=== PATIENT | female | born 1985 | race Two or more races ===

== ENCOUNTER 2016-06-06 12:25 | Observation (INO) | payer SELFPAY ==
[2016-06-06] MEDS ORDERED: PREN-153 OR (13:49)
== END 2016-06-06 16:20 | disposition home or self-care (01) | DRG 781 ==
LOC: LDRP 12:25
PROVIDERS: ADMIT Specialist; ATTEND Specialist
DX: O26.893 Other specified pregnancy related conditions, third trimester (principal); Z3A.37 37 weeks gestation of pregnancy
CPT/HCPCS: 59025; 76805; 76818; 81002; G0378

== ENCOUNTER 2016-06-07 18:57 | Observation (INO) | payer SELFPAY ==
[~2016-06-07 18:57] MED LIST: PREN-153 OR
== END 2016-06-07 20:22 | disposition home or self-care (01) | DRG 781 ==
LOC: LDRP 18:57
PROVIDERS: ADMIT Specialist; ATTEND Specialist
DX: O26.893 Other specified pregnancy related conditions, third trimester (principal); N89.8 Other specified noninflammatory disorders of vagina; Z3A.34 34 weeks gestation of pregnancy
CPT/HCPCS: 59025; 76818; 81002; G0378

== ENCOUNTER 2016-06-09 20:22 | Observation (INO) | payer OTHER | END 2016-06-09 21:38 | disposition home or self-care (01) | DRG 782 | LOC: LDRP 20:22 | PROVIDERS: ADMIT Obstetrics & Gynecology; ATTEND Obstetrics & Gynecology | DX: O41.03X0 Oligohydramnios, third trimester, not applicable or unspecified (principal); Z3A.37 37 weeks gestation of pregnancy | CPT/HCPCS: 59025; 76818; 81002; G0378 ==

== ENCOUNTER 2016-06-11 20:20 | Observation (INO) | payer SELFPAY | END 2016-06-11 21:42 | disposition home or self-care (01) | DRG 781 | LOC: LDRP 20:20 | PROVIDERS: ADMIT Specialist; ATTEND Specialist | DX: O26.893 Other specified pregnancy related conditions, third trimester (principal); Z3A.37 37 weeks gestation of pregnancy | CPT/HCPCS: 59025; 76818; 81002; G0378 ==

== ENCOUNTER 2016-06-27 12:55 | Observation (INO) | payer MEDICAID | END 2016-06-27 14:03 | disposition home or self-care (01) | DRG 566 | LOC: LDRP 12:55 | PROVIDERS: ADMIT Specialist; ATTEND Specialist | DX: O26.893 Other specified pregnancy related conditions, third trimester (principal); R10.9 Unspecified abdominal pain; Z3A.37 37 weeks gestation of pregnancy | CPT/HCPCS: 59025; 76818; 81002; G0378 ==

== ENCOUNTER 2016-06-27 23:03 | Inpatient (IN) | payer MEDICAID ==
[~2016-06-27] VITALS: Ht 152.4 cm; Wt 68.0 kg
[2016-06-27] MEDS ORDERED: LACT. RINGERS/OXYTOCIN 20UNITS 1,000 ML IV SCH (23:10)
[2016-06-27] MEDS ORDERED: WITCH HAZEL-GLYCERIN PAD TOP PRN (23:15)
[2016-06-27] MEDS ORDERED: METHYLERGONOVINE MALEATE 0.2 MG/ML AMP IM PRN (23:15)
[2016-06-27] MEDS ORDERED: NALBUPHINE HCL 10 MG/1ml INJECTION IV PRN (23:15)
[2016-06-27] MEDS ORDERED: CARBOPROST TROMETHAMINE 250 MCG/1ML VIAL IM PRN (23:15)
[2016-06-27] MEDS ORDERED: PHISODERM TOP SOLN 240ML BTL TOP PRN (23:15)
[2016-06-27] MEDS ORDERED: LIDOCAINE 2%HCL (LOCAL ANESTH.) INJ 20ML MDV IJ ONE (23:15)
[2016-06-27] MEDS ORDERED: DERMOPLAST 60ML BOTTLE TOP PRN (23:15)
[2016-06-27 23:52] LABS: Urine RBC None Seen /hpf (0 - 4)
[2016-06-27] MEDS: LACTATED RINGER'S 1,000 ML IV SCH (23:55)
[2016-06-28 00:01] LABS: Basophils # (auto) 0.1 uL; Basophils % (auto) 0.6 % (0.0-2.0); Eosinophils # (auto) 0.2 uL; Hematocrit 33.8 % (36.0-46.0); Hemoglobin 11.3 g/dL (12.2-16.2); Mean Corpuscular Hemoglobin 31.2 pg (28.0-32.0); Mean Corpuscular Hgb Conc. 33.3 g/dL (32.0-36.0); Mean Corpuscular Volume 93.5 fL (80.0-100.0); Mean Platelet Volume 10.3 fL (7.4-10.4); Monocytes # (auto) 0.7 uL; Monocytes % (auto) 7.2 % (0.0-12.0); Neutrophils # (auto) 6.3 uL; Neutrophils % (auto) 69.2 % (37.0-80.0); Platelet Count (auto) 162 10^3/uL (140-450); Red Cell Distribution Width 12.5 % (11.6-16.0); White Blood Cell 9.3 10^3/uL (4.4-10.8)
[2016-06-28 00:04] LABS: Urine Bilirubin Negative (Negative); Urine Blood Negative /uL (Negative); Urine Color Yellow (Yellow); Urine Glucose Normal (Normal); Urine Ketone Negative (Negative); Urine Nitrite Negative (Negative); Urine Urobilinogen Normal (Negative); Urine pH 6.5 (5.0-8.0)
[2016-06-28 00:17] LABS: Partial Thromboplastin Time 25.7 sec (22.64-33.71); Prothrombin Time 9.6 sec (9.37-12.3)
[2016-06-28 00:19] LABS: Albumin 2.5 g/dL (3.4-5.0); BUN/Creatinine Ratio 27.5; Calcium 9.2 mg/dL (8.5-10.1)
[2016-06-28 00:22] LABS: Bilirubin, Total 0.2 mg/dL (0.2-1.0); Total Protein 6.8 g/dL (6.4-8.2)
[2016-06-28 00:23] LABS: INR 0.88 (0.9-1.15)
[2016-06-28] MEDS ORDERED: AZITHROMYCIN 250 MG TAB PO ONE (01:00)
[2016-06-28] MEDS ORDERED: SODIUM CHLORIDE 0.9% 500 ML IV PRN ×2 (07:28→09:19)
[2016-06-28] MEDS ORDERED: fentaNYL W ROPIVACAINE 150 ML EPI SCH ×2 (07:30→10:00)
[2016-06-28] MEDS ORDERED: ePHEDrine SULFATE 50 MG/ML AMP IV ONE ×2 (07:30→09:30)
[2016-06-28] MEDS ORDERED: fentaNYL CITRATE 100 MCG/2 ML VL IV ONE ×2 (07:30→09:30)
[2016-06-28] MEDS ORDERED: LIDOCAINE HCL 2 %PF INJ 10ML AMP IJ ONE ×2 (07:30→09:30)
[2016-06-28] MEDS: LACTATED RINGER'S 1,000 ML IV SCH ×2 (08:10→11:05)
[2016-06-28] MEDS ORDERED: LIDOCAINE 2%HCL (LOCAL ANESTH.) INJ 20ML MDV IJ ONE (09:30)
[2016-06-28] MEDS ORDERED: NALOXONE HCL 0.4 MG/ML VIAL IV ONE (09:30)
[2016-06-28] MEDS ORDERED: ceFAZolin 1GM 2 GM in D5W 5% 100 ML IV ONE (10:30)
[2016-06-28 11:50] VITALS: BP 108/59
[2016-06-28] MEDS ORDERED: LACT. RINGERS/OXYTOCIN 20UNITS 500 ML IV ONE (12:18)
[2016-06-28] MEDS ORDERED: ACETAMINOPHEN 325 MG TAB PO PRN (12:30)
[2016-06-28] MEDS ORDERED: METHYLERGONOVINE MALEATE 0.2 MG/ML AMP IM ONE (12:30)
[2016-06-28] MEDS ORDERED: LACT. RINGERS/OXYTOCIN 20UNITS 1,000 ML IV SCH (13:18)
[2016-06-28 14:13] VITALS: BP 92/52
[2016-06-28 15:39] VITALS: BP 100/58
[2016-06-28 19:30] VITALS: BP 112/57
[2016-06-28] MEDS: IBUPROFEN 600 MG TAB PO PRN (20:36)
[2016-06-29 00:30] VITALS: BP 93/54
[2016-06-29] MEDS: IBUPROFEN 600 MG TAB PO PRN (01:09)
[2016-06-29 04:30] VITALS: BP 89/50
[2016-06-29 08:00] VITALS: BP 99/55
[2016-06-29 11:30] VITALS: BP 114/70
[2016-06-29 11:53] VITALS: BP 114/70
== END 2016-06-29 11:50 | disposition home or self-care (01) | DRG 560 ==
LOC: LDRP 23:03
PROVIDERS: ADMIT Obstetrics & Gynecology; ATTEND Obstetrics & Gynecology
PROC: 0WQNXZZ Repair Female Perineum, External Approach (ICD-10-PCS; principal; 2016-06-28)
PROC: 10E0XZZ Delivery of Products of Conception, External Approach (ICD-10-PCS; 2016-06-28)
PROC: 3E0S3CZ (ICD-10-PCS; 2016-06-28)
PROC: 00HU33Z Insertion of Infusion Device into Spinal Canal, Percutaneous Approach (ICD-10-PCS; 2016-06-28)
DX: O41.03X0 Oligohydramnios, third trimester, not applicable or unspecified (principal); O98.82 Other maternal infectious and parasitic diseases complicating childbirth; O70.0 First degree perineal laceration during delivery; Z37.0 Single live birth; Z3A.40 40 weeks gestation of pregnancy
CPT/HCPCS: 36415; 59409; 80053; 81001; 85025; 85610; 85730; 86850; 86900; 86901; J0690; J2590; J3010; J7060